=== PATIENT | male | born 1965 | race Caucasian/White ===

== ENCOUNTER 2016-10-26 14:36 | Emergency (ER) | payer OTHER ==
[~2016-10-26] VITALS: Wt 82.0 kg
[~2016-10-26 14:36] MED LIST: IBUP-1542 PO
[2016-10-26] MEDS ORDERED: ONDANSETRON 4 MG INJ IV STA (18:32)
[2016-10-26] MEDS ORDERED: SOD CHLORIDE 0.9% 1,000 ML IV STA (18:32)
[2016-10-26] MEDS ORDERED: KETOROLAC 30 MG INJ IV STA (18:32)
--- NOTE | 2016-10-26 18:39 | ERD ---
ER Documentation Chief Complaint Date/Time DATE: 10/26/16 TIME: 18:36 Chief Complaint R SIDE UPPER QUAD ABD PAIN 3 DAYS. NO N/V. NO DIARRHEA. HPI This is a 51-year-old male presents to the ER with right-sided abdominal pain that started 3 days ago. Right abdominal pain is located in the upper portion of his abdomen. He denies any nausea vomiting or diarrhea. Pain is sharp and intermittent. He denies any fevers or chills. He does admit to some chest pain and shortness of breath secondary to pain. He denies any urinary frequency or dysuria. He denies any hematuria. Patient does have a slight cough that is dry. Patient smokes cigarettes. ROS 12 point review of systems was done, all negative except per HPI. Medications Home Meds Active Scripts Hydrocodone/Acetaminophen (Simonton 5-325 Tablet) 1 Each Tablet, 1 TAB PO Q6H Y for PAIN, #10 TAB Prov:SONG IBRAHIM 10/26/16 Levofloxacin* (Levaquin*) 750 Mg Tablet, 750 MG PO DAILY for 5 Days, TAB Prov:SYLVIA IBRAHIMNA C 10/26/16 Ibuprofen* (Ibuprofen*) 600 Mg Tablet, 600 MG PO Q6H Y for PAIN, #30 TAB Prov:CORI SINHA NP 03/21/15 Allergies Allergies: Coded Allergies: No Known Allergy (Unverified , 08/14/12) PMhx/Soc Hx Alcohol Use: Yes Hx Substance Use: No Hx Tobacco Use: Yes Physical Exam Vitals Vital Signs Date Time Temp Pulse Resp B/P Pulse Ox O2 Delivery O2 Flow Rate FiO2 10/26/16 14:46 100.3 73 22 123/66 99 Physical Exam GENERAL: Patient is a significant distress secondary to pain. HEENT: Atraumatic. CHEST: Clear to auscultation bilaterally. There are no rales, wheezes or rhonchi. HEART: Regular rate and rhythm. No murmurs, clicks, rubs or gallops. ABDOMEN: Tender to palpation near the lateral right rib cage. Good bowel sounds. No rebound or guarding. No gross peritonitis. No gross organomegaly or masses. No Myers sign or McBurney point tenderness. BACK: No midline or flank tenderness. EXTREMITIES: Full range of motion. Grossly neurovascularly intact. NEURO: Alert and oriented. Result Diagram: 10/26/160 10/26/16 1850 Results 24 hrs Laboratory Tests Test 10/26/16 18:50 Alanine Aminotransferase (ALT/SGPT) 22IU/L Albumin 4.0g/dl Albumin/Globulin Ratio 1.00 Alkaline Phosphatase 70IU/L Anion Gap 19 Aspartate Amino Transf (AST/SGOT) 20IU/L Basophils # 0.110^3/ul Basophils % 0.6% Blood Urea Nitrogen 12mg/dl Calcium Level 9.0mg/dl Carbon Dioxide Level 24mmol/L Chloride Level 102mmol/L Creatinine 0.88mg/dl Direct Bilirubin 0.00mg/dl Eosinophils # 0.310^3/ul Eosinophils % 1.8% Globulin 4.00g/dl Glucose Level 96mg/dl Hematocrit 41.6% Hemoglobin 14.9g/dl Indirect Bilirubin 0.4mg/dl Lipase 43U/L Lymphocytes # 2.610^3/ul Lymphocytes % 19.0% Mean Corpuscular Hemoglobin 31.5pg Mean Corpuscular Hemoglobin Concent 35.8g/dl Mean Corpuscular Volume 87.9fl Mean Platelet Volume 9.7fl Monocytes # 1.110^3/ul Monocytes % 8.0% Neutrophils # 9.710^3/ul Neutrophils % 70.1% Nucleated Red Blood Cells # 0.010^3/ul Nucleated Red Blood Cells % 0.0/100WBC Platelet Count 48640^3/UL Potassium Level 4.0mmol/L Red Blood Count 4.7310^6/ul Red Cell Distribution Width 12.4% Sodium Level 141mmol/L Total Bilirubin 0.4mg/dl Total Protein 8.0g/dl Troponin I < 0.012ng/ml White Blood Count 13.910^3/ul Current Medications Medications (Trade) Dose Ordered Sig/Keon Route PRN Reason Start Time Stop Time Status Last Admin Dose Admin Sodium Chloride (NS) 1,000 ml @ 1,000 mls/hr Q1H STAT IV 10/26/16 18:32 10/26/16 19:31 DC 10/26/16 19:00 Ondansetron HCl (Zofran Inj) 4 mg ONCE STAT IV 10/26/16 18:32 10/26/16 18:34 DC 10/26/16 19:21 Ketorolac Tromethamine (Toradol) 30 mg ONCE STAT IV 10/26/16 18:32 10/26/16 18:40 DC Morphine Sulfate 6 mg 6 mg ONCE ONCE IV 10/26/16 19:00 10/26/16 19:01 DC 10/26/16 19:22 Ceftriaxone Sodium (Rocephin) 50 ml @ 100 mls/hr ONCE ONCE IVPB 10/26/16 20:30 10/26/16 20:59 10/26/16 20:47 Procedures/MDM Differential Diagnosis: GERD, gastritis, peptic ulcer disease, pancreatitis, cholecystitis, choledocholithiasis, biliary colic, cholangitis, Hisq-[id number]-[id number] , ACS/[place], Pnuemonia. Patient did have pneumonia on CT scan. Suspicion for acute [place] or other cardiac etiology is low. Patient's EKG was read by Dr. Chew [address] elevation no T-wave inversion. Patient's troponin was negative. There was no evidence of gallstones or kidney stones. Patient did have some ileus on CT scan however he does not have any nausea vomiting or diarrhea. Patient did have a slight fever here in the ER. He will be given a shot of Rocephin for his pneumonia and he will be sent home with Levaquin. I discussed CT scan findings in this case with Dr. Chew. He agrees with my medical decision making. Through shared medical decision making patient stated he would like to go home as he felt much better. At this time he does have a slight increase in his white blood cell count however he is extremely well- appearing after treatment in the ER and wishes to go home. Patient will be sent home with Levaquin. He will also be given Simonton for any pain. He needs to return to ER immediately if symptoms change or worsen. At this time patient is afebrile he is not hypoxic or in any respiratory distress and he is able to tolerate p.o. fluids. Patient understands and agrees with plan. Departure Diagnosis: Primary Impression: Pneumonia Condition: Stable SONG IBRAHIM Oct 26, 2016 18:38
[2016-10-26] MEDS ORDERED: morphine 10 MG INJ IV ONE (19:00)
[2016-10-26 19:12] LABS: ADD SCAN DIFF NO
[2016-10-26 19:14] LABS: BASOPHIL # 0.1 10^3/ul (0.0-0.1); BASOPHILS % 0.6 % (0.0-2.0); EOSINOPHILS # 0.3 10^3/ul (0.0-0.5); EOSINOPHILS % 1.8 % (0.0-7.0); HEMATOCRIT 41.6 % (42.0-52.0); HEMOGLOBIN 14.9 g/dl (14.0-18.0); LYMPHOCYTES # 2.6 10^3/ul (0.8-2.9); MEAN CORPUSCULAR HEMOGLOBIN 31.5 pg (29.0-33.0); MEAN CORPUSCULAR HGB CONC 35.8 g/dl (32.0-37.0); MEAN CORPUSCULAR VOLUME 87.9 fl (82.0-101.0); MEAN PLATELET VOLUME 9.7 fl (7.4-10.4); MONOCYTE # 1.1 10^3/ul (0.3-0.9); NEUTROPHIL # 9.7 10^3/ul (1.6-7.5); NEUTROPHILS % 70.1 % (39.0-77.0); PLATELET COUNT 275 10^3/UL (140-415); RED BLOOD COUNT 4.73 10^6/ul (4.70-6.10); RED CELL DISTRIBUTION WIDTH 12.4 % (11.5-14.5); WHITE BLOOD COUNT 13.9 10^3/ul (4.8-10.8)
--- NOTE | 2016-10-26 19:18 | RADRPT ---
PROCEDURE: Chest x-ray CLINICAL INDICATION: Right-sided abdominal pain TECHNIQUE: Chest single view COMPARISON: None FINDINGS: The heart is normal in size. The pulmonary vessels are normal in caliber. The lungs are clear. Th e costophrenic angles are sharp. The visualized bony thorax is unremarkable. IMPRESSION: No acute cardiopulmonary disease. Gaseous distension of the stomach RPTAT: HH .Brad Rosenberg MD, MD Date Time Electronically viewed and signed by .Brad Rosenberg MD, on 10/26/2016 19:18 .W/
[2016-10-26 19:25] LABS: CHLORIDE 102 mmol/L (97-110); SODIUM 141 mmol/L (135-144)
[2016-10-26 19:27] LABS: ANION GAP 19 (8-16); ASPARTATE AMINO TRANSFERASE 20 IU/L (15-46); BILIRUBIN,INDIRECT 0.4 mg/dl (0-1.1); BILIRUBIN,TOTAL 0.4 mg/dl (0.2-1.3); CARBON DIOXIDE 24 mmol/L (21-31); CREATININE 0.88 mg/dl (0.61-1.24)
[2016-10-26 19:28] LABS: ALANINE AMINOTRANSFERASE 22 IU/L (13-69); ALKALINE PHOSPHATASE 70 IU/L (42-121); BLOOD UREA NITROGEN 12 mg/dl (7-20); GLUCOSE 96 mg/dl (70-220)
--- NOTE | 2016-10-26 19:40 | RADRPT ---
PROCEDURE: US right upper quadrant CLINICAL INDICATION: Abdominal pain TECHNIQUE: Multiple real-time images were acquired of the patient's right upper abdomen utilizing a high resolution transducer. COMPARISON: None available FINDINGS: Liver: Normal in size, contour and echogenicity. Normal directional blood flow is seen within the p atent main portal vein. The maximum dimension estimated at 16.3 cm . Gallbladder: Normal. No sonographic Myers's sign is reported. Common bile duct: Normal; 3.7 mm. There is no evidence for choledocholithiasis. Right Kidney: Normal; maximum length measured at approximately 11.1 cm. Pancreas: Visualized portions are normal. The tail is partially obscured by bowel gas. RPTAT:HJJR IMPRESSION: Normal right upper quadrant ultrasound. Physician Jade Date Time Electronically viewed and signed by Physician Jade on 10/26/2016 19:40 /
--- NOTE | 2016-10-26 19:45 | RADRPT ---
PROCEDURE: CT abdomen and pelvis without contrast. CLINICAL INDICATION: Abdominal pain TECHNIQUE: CT scan of the abdomen and pelvis without contrast was performed. Sagittal and coronal reformatted images were obtained from the axial source images. CTDI = 11.38 mGy; DLP = 756.67 mGy-c m COMPARISON: Right upper quadrant ultrasound 10/26/2016 FINDINGS: Visualized lower thorax: Posterior right lobe infiltrate is not evident on the portable chest x-ray . The left lung base appears clear. The visualized heart is within the loss of normal A small rig ht pleural effusion is noted. Liver, gallbladder, pancreas and spleen: The liver is normal and size, contour and attenuation. Th ere is no evidence for a liver mass or ductal dilatation. The gallbladder is unremarkable. No comm on bile duct abnormality is demonstrated. The pancreas is unremarkable. The spleen is normal in si ze. Adrenal glands and genitourinary system: The adrenal glands are normal bilaterally. The kidneys are normal and size, contour and attenuation with no evidence for masses, calculi or hydronephrosis. T he ureters are unremarkable. No urinary bladder abnormality is demonstrated. The prostate gland is normal in size. The scrotum shows no abnormality. Gastrointestinal system: The stomach is normal in caliber with no abnormality of significance. Mil d prominence of the jejunum is present suggestive of a a focal ileus or and / or enteritis without e vidence of complete bowel obstruction. The ileum is normal in caliber and appearance. A fluid fill ed structure within the right lower quadrant in the region of the distal elements possibly a diverti culum, Meckel's diverticulum difficult to exclude (series 3 image 160). The appendix and surroundin g fat are within the limits of normal. The colon shows no evidence for wall thickening or acute abn ormality. There is no evidence for colitis or diverticulitis. Peritoneum, retroperitoneum, lymph nodes and vessels: The abdominal aorta is normal in caliber. The re is mild distal aortic and iliac system atherosclerotic calcification. The inferior vena cava is unremarkable. There is no evidence for adenopathy or mass. There is no ascites. Osseous structures and musculoskeletal findings: There is no fracture, lytic or blastic lesion. Mil d multilevel lumbar spondylosis is present No muscular abnormality or soft tissue pathology is pres ent. RPTAT:HJJR IMPRESSION: 1. Posterior right lower lobe infiltrate and small right pleural effusion unable to exclude pneumoni a with parapneumonic effusion in the proper clinical setting, findings not evident on the portable c hest x-ray from earlier the same day. 2. Focal ileus and possibly enteritis of the jejunum in the left upper quadrant of the abdomen with out evidence of bowel obstruction. 3. Equivocal ileal diverticulum the right lower quadrant, a Meckel's diverticulum is a possibility. 4. Minimal atherosclerotic calcification of the abdominal aorta and iliac systems. Physician Jade Date Time Electronically viewed and signed by Scar Juares Physician on 10/26/2016 19:45 JR/
[2016-10-26 19:50] LABS: TROPONIN-I < 0.012 ng/ml (0.00-0.12)
[2016-10-26] MEDS ORDERED: CEFTRIAXONE 1 GM/50 ML (PMX) 50 ML IVPB ONE (20:30)
[2016-10-26] MEDS ORDERED: LEVO750T25 PO (20:52)
[2016-10-26] MEDS ORDERED: HYDR-906 PO (20:53)
[2016-10-26 21:19] VITALS: BP 138/78; PULSE 85; RESP 16; TEMP 99.2
== END 2016-10-26 21:20 | disposition home or self-care (01) ==
LOC: FTE 14:36
DX: J18.9 Pneumonia, unspecified organism (principal); R07.9 Chest pain, unspecified; F17.210 Nicotine dependence, cigarettes, uncomplicated
CPT/HCPCS: 36415; 71010; 74176; 76705; 80053; 83690; 84484; 85025; 93005; 96374; 96375; J0696; J2270; J2405; J7030; Z7502